=== PATIENT | female | born 1970 ===

== ENCOUNTER 2018-02-03 10:03 | Inpatient (IN) | payer OTHER ==
[~2018-02-03] VITALS: Ht 154.9 cm; Wt 66.2 kg
[2018-02-07] MEDS ORDERED: PRENATAL TABLE1 EACH PO (22:22)
[2018-02-07] MEDS ORDERED: SYNTHROID88 MCG PO (22:22)
== END 2018-02-11 13:55 | DRG 807 ==
LOC: OB/GYN → LDR 02-07 21:42 → SURG-SUITE 02-09 03:23 → OB/GYN 02-12 10:10
PROC: 4A1HXCZ Monitoring of Products of Conception, Cardiac Rate, External Approach (ICD-10-PCS; 2018-02-07)
PROC: 10E0XZZ Delivery of Products of Conception, External Approach (ICD-10-PCS; principal; 2018-02-09)
DX: O80 Encounter for full-term uncomplicated delivery (principal); Z37.0 Single live birth; Z3A.39 39 weeks gestation of pregnancy; Z22.330 Carrier of Group B streptococcus